=== PATIENT | female | born 1945 | race Caucasian/White ===

== ENCOUNTER 2017-12-17 03:19 | Emergency (ER) | payer MEDICARE, BC ==
[2017-12-17] MEDS ORDERED: SODIUM CHLORIDE 0.9% FLUSH 10 ML FLUSH IVF (04:15)
[2017-12-17 04:25] LABS: BILIRUBIN, URINE NEG (NEG); BLOOD, URINE SMALL (NEG); GLUCOSE,URINE NEG (NEG); KETONE, URINE NEG (NEG); NITRITE,URINE NEG (NEG); URINE COLOR YELLOW (YELLW/STRAW); URINE LEUKOCYTE ESTERASE NEG (NEG)
[2017-12-17] MEDS: KETOROLAC TROMETHAMINE 30 MG/ML (IVP) VIAL IV PUSH (04:30)
[2017-12-17] MEDS: SODIUM CHLOR 0.9% 1000 ML INJ 1,000 ML IV (04:30)
[2017-12-17] MEDS: ONDANSETRON HCL 4 MG/2 ML VIAL IV PUSH (04:30)
[2017-12-17 04:32] LABS: AUTOMATED NEUTROPHIL # 4.1 TH/MM3 (1.8-7.7); BASOPHIL # 0.1 TH/MM3 (0-0.2); EOSINOPHIL # 0.1 TH/MM3 (0-0.4); EOSINOPHIL % 1.8 % (0.0-4.0); HEMATOCRIT 43.8 % (35.0-46.0); HEMO FLAGS DIFF FINAL; HEMOGLOBIN 14.5 GM/DL (11.6-15.3); LYMPH % 32.7 % (9.0-44.0); LYMPHOCYTE # 2.3 TH/MM3 (1.0-4.8); MEAN CORPUSCULAR HEMOGLOBIN 29.5 PG (27.0-34.0); MEAN CORPUSCULAR HGB CONC 33.1 % (32.0-36.0); MONO % 7.5 % (0.0-8.0); MONOCYTE # 0.5 TH/MM3 (0-0.9); PLATELET COUNT 295 TH/MM3 (150-450); RED BLOOD COUNT 4.92 MIL/MM3 (4.00-5.30); RED CELL DISTRIBUTION WIDTH 12.4 % (11.6-17.2); WHITE BLOOD COUNT 7.1 TH/MM3 (4.0-11.0)
[2017-12-17 04:36] LABS: BACTERIA, URINE OCC /hpf; COMMENT (UR) CULT NOT INDICATED; CULTURE IF INDICATED CULT NOT INDICATED; WBC, URINE 0-2 /hpf (0-5)
[2017-12-17 05:05] LABS: CHLORIDE 108 MEQ/L (98-107); POTASSIUM 3.9 MEQ/L (3.5-5.1); SODIUM (NA) 138 MEQ/L (136-145)
[2017-12-17 05:09] LABS: ALBUMIN 3.7 GM/DL (3.4-5.0); ANION GAP 6 MEQ/L (5-15); BICARBONATE 24.1 MEQ/L (21.0-32.0); BLOOD UREA NITROGEN 9 MG/DL (7-18); GLUCOSE,RANDOM 118 MG/DL (74-106)
[2017-12-17] MEDS: ACETAMINOPHEN/HYDROcodone 325 MG/5 MG TAB PO (05:10)
[2017-12-17 05:12] LABS: ALT (GPT) 30 U/L (10-53); AST (GOT) 23 U/L (15-37); CREATININE 0.66 MG/DL (0.50-1.00); GLOMERULAR FILTRATION RATE 88 ML/MIN (>89)
[2017-12-17 05:14] LABS: TOTAL BILIRUBIN ADULT 0.6 MG/DL (0.2-1.0); TOTAL PROTEIN 7.6 GM/DL (6.4-8.2)
[2017-12-17 05:15] LABS: ALKALINE PHOSPHATASE 75 U/L (45-117)
== END 2017-12-17 06:18 | disposition home or self-care (01) ==
LOC: PHED 03:19
DX: M54.5 Low back pain (principal); E78.00 Pure hypercholesterolemia, unspecified; I10 Essential (primary) hypertension; Z87.891 Personal history of nicotine dependence
CPT/HCPCS: 71046; 74176; 80053; 81001; 85025; 96361; 96374; 96375; 99285-25